=== PATIENT | female | born 1960 | race Caucasian/White ===

== ENCOUNTER 2021-06-25 08:00 | Outpatient (CLI) | payer BC, OTHER ==
--- NOTE | 2021-06-25 16:10 | XRAY Report ---
PROCEDURE: Finger(s) LT INDICATIONS: CONTUSION TO LEFT RING FINGER TECHNIQUE: AP hand, 2 views of the 4 finger(s) acquired. COMPARISON: None. FINDINGS: BONES: Mildly displaced fracture of the fourth distal phalanx. SOFT TISSUES: Edema about the fracture site IMPRESSION: 1.Mildly displaced fracture of the fourth distal phalanx. Reviewed by: Adonay Ferrari MD on 06/25/2021 4:09 PM PST Approved by: Adonay Ferrari MD on 06/25/2021 4:09 PM PST Station ID: [id number]
== END 2021-06-25 23:59 | disposition home or self-care (01) ==
LOC: DI.S 08:00
PROVIDERS: ATTEND Emergency Medicine
DX: S62.635A Displaced fracture of distal phalanx of left ring finger, initial encounter for closed fracture (principal)